=== PATIENT | male | born 1975 | race Two or more races ===

== ENCOUNTER 2017-09-12 07:22 | Outpatient (CLI) | payer OTHER ==
[~2017-09-12 07:22] MED LIST: AVAPRO150 MG PO
== END 2017-09-12 10:30 | disposition home or self-care (01) ==
LOC: TOM 07:22
DX: I10 Essential (primary) hypertension (principal); T59.814A Toxic effect of smoke, undetermined, initial encounter

== ENCOUNTER 2017-09-12 09:19 | Outpatient (CLI) | payer OTHER | END 2017-09-12 10:56 | disposition home or self-care (01) | LOC: RAD 09:19 | DX: M54.9 Dorsalgia, unspecified (principal); M54.5 Low back pain ==

== ENCOUNTER 2018-06-10 10:51 | Outpatient (CLI) | payer OTHER | END 2018-06-10 10:57 | disposition home or self-care (01) | LOC: RX STUDY 10:51 | DX: I10 Essential (primary) hypertension (principal) ==

== ENCOUNTER 2018-07-31 13:16 | Outpatient (CLI) | payer OTHER | END 2018-07-31 13:18 | disposition home or self-care (01) | LOC: RAD 13:16 | DX: N20.0 Calculus of kidney (principal); M54.5 Low back pain ==

== ENCOUNTER 2019-01-31 07:29 | Outpatient (CLI) | payer OTHER | END 2019-01-31 17:00 | disposition home or self-care (01) | LOC: MAMO-SONO 07:29 | DX: Z72.0 Tobacco use (principal); R06.02 Shortness of breath; R10.13 Epigastric pain ==

== ENCOUNTER 2019-03-19 09:16 | Outpatient (CLI) | payer OTHER | END 2019-03-19 09:17 | disposition home or self-care (01) | LOC: NUCLEAR 09:16 | DX: I70.5 Atherosclerosis of nonautologous biological bypass graft(s) of the extremities (principal) ==

== ENCOUNTER 2019-06-15 18:30 | Emergency (ER) | payer OTHER ==
[~2019-06-15] VITALS: Ht 172.7 cm; Wt 88.5 kg
== END 2019-06-15 20:44 | disposition home or self-care (01) ==
LOC: ER 18:30
DX: M94.0 Chondrocostal junction syndrome [Tietze] (principal)